=== PATIENT | female | born 1950 | race Caucasian/White ===

== ENCOUNTER 2020-08-09 23:12 | Inpatient (IN) | payer MEDICARE, MEDICAID ==
[~2020-08-09] VITALS: Ht 157.5 cm; Wt 67.6 kg
[2020-08-09 23:25] VITALS: BP 101/50
[2020-08-10] VITALS (22 sets, daily range): BP systolic 70–142; BP diastolic 43–76
[2020-08-10 00:20] LABS: HEMATOCRIT 43.9 % (37.0-47.0); HEMOGLOBIN 14.3 gm/dL (12.0-15.0); MCH 29.2 pg (26.0-34.0); MCHC 32.5 g/dL (28.0-37.0); MCV 89.9 fL (80.0-100.0); MPV 7.2 fl. (7.2-11.1); NUCLEATED RBCS 0 /100WBC; PLATELET COUNT* 646 thou/uL (150-400); RBC 4.89 mil/uL (4.20-5.00); RDW-CV 15.5 % (10.5-14.5); WBC 16.5 thou/uL (4.0-11.0)
[2020-08-10 00:27] LABS: INR 1.2
[2020-08-10 01:37] LABS: CALCIUM 7.8 mg/dL (8.5-10.1); POTASSIUM 4.3 mmol/L (3.5-5.1)
[2020-08-10 01:47] LABS: MAGNESIUM 1.8 mg/dL (1.8-2.4); TOTAL BILIRUBIN 0.5 mg/dL (<0.1-1.0); TOTAL PROTEIN 5.8 g/dL (6.4-8.2)
[2020-08-10 01:52] LABS: TROPONIN-I LEVEL 1.01 ng/mL (<0.06)
[2020-08-10 03:08] LABS: ABSOLUTE EOSINOPHILS 0.2 thou/uL (0.0-0.7); ABSOLUTE LYMPHOCYTES 1.7 thou/uL (0.8-5.3); ABSOLUTE MONOCYTES 0.3 thou/uL (0.0-1.2); ABSOLUTE NEUTROPHILS 14.4 thou/uL (1.6-8.1); CLUMPED PLTS FEW; PLATELET ESTIMATE INCREASED
[2020-08-10 03:09] LABS: TOXIC GRANULATION 1+
[2020-08-10 09:01] LABS: CHOLESTEROL 161 mg/dL (<200); HDL CHOLESTEROL 48 mg/dL (>40); LDL CHOLESTEROL 96 mg/dL (<100); TC:HDL 3.4 Ratio (Not establshd); TRIGLYCERIDE 85 mg/dL (<150); VLDL 17 mg/dL (<40)
[2020-08-10 09:05] LABS: SERUM ASSESSMENT Clear
--- NOTE | 2020-08-10 13:15 | H ---
[address] [address] HISTORY AND PHYSICAL Name: QUINN BLACKWELL Room: [address] IN M.R.#: [id number] Admission: 08/10/20 Attend Phys: Chau Mullins MD, Discharge: Date of : 52 Report #: [id number] THIS REPORT FOR: //name// cc: Royce Daniel MD, Michael S. MD ~ CC: Chau Daniel DATE OF SERVICE: 08/10/2020 The patient got into the ICU on 08/10/2020. HISTORY OF PRESENT ILLNESS: The patient is a pleasant 70-year-old female, who developed chest pain this evening. It did not remit. She denies episodes of this kind in the past. She has had somewhat different chest pain previous to this and underwent a cardiac catheterization at [facility] and was told she had a moderate lesion that did not require intervention. The pain this evening was severe with associated shortness of breath, but no nausea. There was mild diaphoresis. She presented to the ER with a field EKG suggesting acute inferior injury. This was corroborated by the EKG in the ER. The patient received aspirin and heparin, and we were called for emergent evaluation of this patient. She gives no history of prior myocardial infarction. Risk factors include tobacco habituation. She denies diabetes, hypertension, hypercholesterolemia or known peripheral vascular disease. She takes no cardiac medicines at present. PAST MEDICAL HISTORY: Remarkable for depression, mild obesity and chronic anxiety. SOCIAL HISTORY: There is a history of tobacco habituation, currently reduced to 4 cigarettes per day. REVIEW OF SYSTEMS: Remarkable for the following: PULMONARY: She notes a cough, which is somewhat productive in the a.m. PHYSICAL EXAMINATION: GENERAL: Demonstrates a mildly distressed, modestly overweight middle-aged female. VITAL SIGNS: Blood pressure is 110/70, pulse rate is 74, respirations are 18 per minute. NECK: Jugular venous pressure is normal. CHEST: Clear. CARDIAC: Reveals normal first and second heart [place] [address] HISTORY AND PHYSICAL Name: QUINN BLACKWELL Room: [address] IN [facility].#: [id number] Admission: 08/10/20 Attend Phys: Chau Mullins MD, Discharge: Date of : 52 Report #: [id number] gallops. ABDOMEN: Mildly obese. EXTREMITIES: Without edema with intact femoral, pedal and radial pulses. EKG reveals acute inferior wall ST segment elevation myocardial infarction. IMPRESSION: 1. Acute inferior ST elevation myocardial infarction. 2. Tobacco habituation. 3. Modest obesity. RECOMMENDATIONS: We planned emergent catheterization. That was undertaken, and the study revealed subtotal occlusion of the right coronary artery just distal to the acute margin with prominent intraluminal thrombus with BIANCA 2-3 flow of the distal vessel. Ultimately, we placed one 3.0 x 22 mm Jude drug-eluting stent in the right coronary artery with 0% residual narrowing, BIANCA 3 flow of the distal vessel and no residual thrombus. The patient did well postprocedurally. She was transferred to the ICU in satisfactory condition with the continuing infusion of Angiomax for 4 hours post procedure. Critical care time is 36 minutes from 12:20 to 12:56 on 08/10/2020. <ELECTRONICALLY SIGNED> By: Chau Mullins MD, [facility] 08/10/20 1315 0056 0255Chau Mullins MD, FAC /nt
--- NOTE | 2020-08-10 13:41 | 2DMMODE ---
[place] [address] 2 D/M-MODE ECHOCARDIOGRAM Name: QUINN BLACKWELL Room: [address] IN M.R.#: [id number] Admission: 08/10/20 Attend Phys: Kaia Armstrong Discharge: Date of : 52 Date of Service: 08/10/20 1340 Report #: [id number] THIS REPORT FOR: cc: Royce Daniel MD, Michael S. MD Holkins, John M. MD [facility] ~ APPROVED REPORT Study performed: 08/10/2020 09:56:12 EXAM: Comprehensive 2D, Doppler, and color-flow Echocardiogram Patient Location: Bedside BSA: 1.69 HR: 62 bpm BP: 142/73 mmHg Other Information Study Quality: Good Indications Chest Pain ND 2D Dimensions IVSd: 11.39 (7-11mm) LVOT Diam: 18.03 (18-24mm) LVDd: 46.90 mm PWd: 11.02 (7-11mm) Ascending Ao: 28.39 (22-36mm) LVDs: 28.99 (25-40mm) Aortic Root: 30.26 mm Volumes Left Atrial Volume (Systole) LA ESV Index: 26.20 mL/m2 Aortic Valve AoV Peak Tom.: 2.11 m/s AO Peak Gr.: 17.88 mmHg LVOT Max P.68 mmHg AO Mean Gr.: 9.50 mmHg LVOT Mean P.11 mmHg LVOT Max V: 1.47 m/s AO V2 VTI: 46.85 cm LVOT Mean V: 0.93 m/s RUBA (VTI): 1.82 cm2 LVOT V1 VTI: 33.32 [place] [address] 2 D/M-MODE ECHOCARDIOGRAM [facility] Room: [address] IN M.R.#: [id number] Admission: 08/10/20 Attend Phys: Kaia Armstrong Discharge: Date of : 52 Date of Service: 08/10/20 1340 Report #: [id number] E/A Ratio: 1.15 MV Decel. Time: 211.34 ms MV E Max Tom.: 0.84 m/s MV PHT: 61.29 ms MVA (PHT): 3.59 cm2 TDI E/Lateral E': 7.00 E/Medial E': 6.46 Medial E' Tom.: 0.13 m/s Lateral E' Tom.: 0.12 m/s Pulmonary Valve PV Peak Tom.: 1.23 m/s PV Peak Gr.: 6.07 mmHg Tricuspid Valve RAP Estimate: 5.00 mmHg TR Peak Gr.: 25.85 mmHg RVSP: 30.85 mmHg PA Pressure: 30.85 mmHg Left Ventricle The left ventricle is normal size. There is normal LV segmental wall motion. There is normal left ventricular wall thickness. Left ventricular systolic function is normal. The left ventricular ejection fraction is within the normal range. LVEF is 60%. The left ventricular diastolic function is normal. Right Ventricle The right ventricle is normal size. The right ventricular systolic function is normal. Atria The left atrium size is normal. The right atrium size is normal. Aortic Valve The Aortic valve is sclerotic. No aortic regurgitation is present. Mild aortic stenosis. Mitral Valve Mild mitral annular calcification. There is no mitral valve regurgitation noted. No evidence of mitral valve stenosis. Tricuspid Valve The tricuspid valve is normal in structure. Trace [place] [address] 2 D/M-MODE ECHOCARDIOGRAM Name: QUINN BLACKWELL Room: [address] [facility]#: [id number] Admission: 08/10/20 Attend Phys: Kaia Armstrong Discharge: Date of : 52 Date of Service: 08/10/20 1340 Report #: [id number] Pulmonic Valve The pulmonary valve is normal in structure. There is no pulmonic valvular regurgitation. Great Vessels The aortic root is normal in size. IVC is normal in size and collapses >50% with inspiration. Pericardium There is no pericardial effusion. <Conclusion> The left ventricle is normal size. There is normal left ventricular wall thickness. Left ventricular systolic function is normal. The left ventricular ejection fraction is within the normal range. LVEF is 60%. The left ventricular diastolic function is normal. The right ventricle is normal size. The left atrium size is normal. The Aortic valve is sclerotic. No aortic regurgitation is present. Mild aortic stenosis. Mild mitral annular calcification. There is no mitral valve regurgitation noted. The tricuspid valve is normal in structure. IVC is normal in size and collapses >50% with inspiration. There is no pericardial effusion. There is normal LV segmental wall motion. <ELECTRONICALLY SIGNED> By: Chau Mullins MD, FACC 08/10/20 1340 1340 1340 Chau Mullins MD, FACC /INF
--- NOTE | 2020-08-10 13:54 | EKG ---
[place] [address] ELECTROCARDIOGRAM REPORT Name: QUINN BLACKWELL Room: [address] ADM IN M.R.#: [id number] Admission: 08/10/20 Attend Phys: Kaia Armstrong Discharge: Date of : 52 Date of Service: 08/09/20 2331 Report #: [id number] THIS REPORT FOR: //name// [facility] ED Test Date: 2020-08-09 Test Time: 23:31:58 Pat Name: QUINN BLACKWELL Department: Room: [facility] Gender: F Hotel Housekeeper: ZAIDA : 1950 Requested By: Rosa Lopez Order Number: [id number] MD: Chau Mullins Measurements Intervals [place] Rate: 52 P: 71 [place]: 146 QRS: 68 QRSD: 80 T: 88 QT: 466 QTc: 434 Interpretive Statements Sinus rhythm Inferior infarct, acute (RCA) Probable RV involvement, suggest recording right precordial leads Baseline wander in lead(s) V1 No previous ECG available for comparison Electronically Signed On 08-10-2020 13:54:38 CDT by Chau Mullins [email or web address] <ELECTRONICALLY SIGNED> By: Chau Mullins MD, FACC 08/10/20 1354 2331 2331 Chau Mullins MD, FAC /EPI
--- NOTE | 2020-08-10 13:56 | EKG ---
[place] [address] ELECTROCARDIOGRAM REPORT Name: QUINN BLACKWELL Room: [address] ADM IN M.R.#: [id number] Admission: 08/10/20 Attend Phys: Kaia Armstrong Discharge: Date of : 52 Date of Service: 08/10/20 0136 Report #: [id number] THIS REPORT FOR: //name// [facility] Test Date: 2020-08-10 Test Time: 01:36:58 Pat Name: QUINN BLACKWELL Department: Room: [address] Gender: F Homeopathic Doctor: DANIEL : 1950 Requested By: Chau Mullins Order Number: [id number] MD: Chau Mullins Measurements Intervals [place] Rate: 60 P: 79 MD: 154 QRS: 48 QRSD: 86 T: 72 QT: 455 QTc: 455 Interpretive Statements Sinus rhythm Minimal ST elevation, inferior leads Compared to ECG 08/09/2020 23:31:58 ST (T wave) deviation now present Inferior ST segment elevation has diminished markedly Electronically Signed On 08-10-2020 13:55:53 CDT by Chau Mullins [email or web address] <ELECTRONICALLY SIGNED> By: Chau Mullins MD, FAC 08/10/20 1355 5 5 Chau Mullins MD, FAC /EPI
--- NOTE | 2020-08-10 13:58 | EKG ---
[place] [address] ELECTROCARDIOGRAM REPORT Name: QUINN BLACKWELL Room: [address] ADM IN M.R.#: [id number] Admission: 08/10/20 Attend Phys: Kaia Armstrong Discharge: Date of : 52 Date of Service: 08/10/20 0953 Report #: [id number] THIS REPORT FOR: //name// [facility] Test Date: 2020-08-10 Test Time: 09:53:10 Pat Name: QUINN BLACKWELL Department: Room: [address] Gender: F Core Analysis Operator: TONY : 1950 Requested By: Chau Mullins Order Number: [id number] Reading MD: Chau Mullins Measurements Intervals [place] Rate: 60 P: 71 [place]: 148 QRS: 20 QRSD: 86 T: -29 QT: 451 QTc: 451 Interpretive Statements Sinus rhythm Nonspecific T abnormalities, inferior leads Compared to ECG 08/10/2020 01:36:58 There has been evolution of inferior ST-T abnormalities compatible with evolving injury Electronically Signed On 08-10-2020 13:58:06 CDT by Chau Mullins [email or web address] <ELECTRONICALLY SIGNED> By: Chau Mullins MD, FAC 08/10/20 1358 0953 0953 Chau Mullins MD, [facility] /EPI
[2020-08-10 18:12] LABS: URINE BILIRUBIN NEGATIVE (Negative); URINE BLOOD NEGATIVE (Negative); URINE CLARITY CLEAR; URINE COLOR YELLOW; URINE GLUCOSE-RANDOM NEGATIVE (Negative); URINE KETONES NEGATIVE (Negative); URINE LEUKOCYTES-REFLEX NEGATIVE (Negative); URINE NITRITE-REFLEX NEGATIVE (Negative); URINE PROTEIN NEGATIVE (Negative); URINE UROBILINOGEN 0.2 E.U./dl (0.2-1.0)
[2020-08-11] VITALS (7 sets, daily range): BP systolic 110–126; BP diastolic 58–61
[2020-08-11 02:37] LABS: HEMATOCRIT 40.4 % (37.0-47.0); HEMOGLOBIN 13.6 gm/dL (12.0-15.0); MCH 29.9 pg (26.0-34.0); MCHC 33.8 g/dL (28.0-37.0); MCV 88.5 fL (80.0-100.0); MPV 7.2 fl. (7.2-11.1); RBC 4.56 mil/uL (4.20-5.00); RDW-CV 15.1 % (10.5-14.5); WBC 10.6 thou/uL (4.0-11.0)
[2020-08-11 02:52] LABS: ALBUMIN 2.7 g/dL (3.4-5.0); CALCIUM 7.8 mg/dL (8.5-10.1); CREATININE 0.8 mg/dL (0.6-1.3); POTASSIUM 4.2 mmol/L (3.5-5.1); TOTAL PROTEIN 5.4 g/dL (6.4-8.2)
[2020-08-11 02:56] LABS: TROPONIN-I LEVEL 2.29 ng/mL (<0.06)
[2020-08-11] MEDS ORDERED: LIPITOR 40 MG T40 M1 PO (08:33)
[2020-08-11] MEDS ORDERED: ASPIR 8181 MG PO (08:33)
[2020-08-11] MEDS ORDERED: CARVEDILOL3.125 MG PO (08:33)
[2020-08-11] MEDS ORDERED: LISINOPRIL5 MG PO (08:33)
[2020-08-11] MEDS ORDERED: EFFIENT10 MG PO (08:33)
--- NOTE | 2020-08-11 10:23 | CARD ---
[address] [address] CARDIAC CATH REPORT Name: QUINN BLACKWELL Room: [address] IN ..#: [id number] Admission: 08/10/20 Attend Phys: Chau Mullins MD, Discharge: Date of : 52 Report #: [id number] THIS REPORT FOR: //name// cc: Royce Daniel MD, Michael S. MD ~ ADDENDUM APPROVED REPORT Study performed: 08/09/2020 23:19:36 Patient Details Patient Status: ED Room #: ICU-5 The patient is a 70 year-old female Event Personnel Chau Mullins Humane Agent, Chelsey Sánchez RN Enrichment Teacher, Apple Gomez RTR Monitor, Gomez Florence RTR Scrub Procedures Performed Art Access - R femoral artery, Left Heart Cath w/or w/o Coronaries LHC, ARLETH Place w/wo Plasty Single RCA , Hemostasis w/ Angioseal Indication STEMI Risk Factors Tobacco History () Admission/Lab Medications/Medications given during procedure Angiomax IV 10 ml, Angiomax Drip IV 23.1 ml per hr, Nitroglycerin IC 150 mcg, Nitroglycerin IC 150 mcg, Effient PO 60 mg, Aspirin PO 162 mg Procedure Narrative The patient was brought emergently to the Cardiac Catheterization Laboratory and was prepped and draped in a sterile manner. The right femoral was infiltrated with 2% Lidocaine subcutaneous anesthesia. A Ramah 6 FR sheath was inserted into the right femoral artery. Coronary angiography was performed using coronary diagnostic catheters. The right coronary system was accessed and visualized with a 6F JR4 catheter. The left coronary system was accessed and visualized with a 6F JL4 catheter. The left ventricle was accessed and visualized with a 5F Straight Pigtail catheter. Left ventricular/Aortic Valve gradient assessed [place] [address] CARDIAC CATH REPORT Name: QUINN BLACKWELL Room: [address] IN M.R.#: [id number] Admission: 08/10/20 Attend Phys: Chau Mullins MD, Discharge: Date of : 52 Report #: [id number] Left ventriculogram was performed in PASTRANA projection. Pre-demployment femoral angiogram was performed . Closure device was deployed with a 6 Fr Angioseal STS. The patient tolerated the procedure well and there were no complications associated with the procedure. There was no hematoma. Intraoperative Conscious Sedation Sedation start time: 12:19 Case end Time: 12:42 Fentanyl 25 mcg Versed 1 mg Fluoro Time: 10.3 minutes Dose: DAP 15281 cGycm2 907 mGy Contrast Type and Amount: Visipaque 190 ml Coronary Angiography The patient's coronary anatomy is right dominant. Diagnostic Cath Left Main 0% narrowing LAD 30% mid LAD narrowing Circumflex 20% mid circumflex narrowing Right Coronary Large dominant vessel with 30% mid vessel narrowing and 90% stenosis just beyond the acute margin with prominent intraluminal thrombus at the site. There was BIANCA II-III flow to the distal right coronary artery Left Ventriculography The left ventricle is normal in size with normal contractility. The left ventricular ejection fraction is estimated to be 65%. Left ventricular wall motion abnormalities are not present. There is no mitral insufficiency. Hemodynamics The aortic pressure is 97/54 mmHg with a mean of 73 mmHg. The left ventricular pressure is 101/8 mmHg with a mean of mmHg. The left ventricular end diastolic pressure is 22 mmHg. PCI Technique Lesion Anticoagulation was achieved with Angiomax. Patient was preloaded with Angiomax IV 10 ml. Percutaneous coronary intervention was performed on the Distal right coronary artery. The lesion stenosis prior to intervention was 90% with BIANCA 2-3 flow. A 6F JR 4.0 Guide Catheter was used to engage the right ostium. A BMW 190cm Interventional Guidewire was [place] [address] CARDIAC CATH REPORT Name: QUINN BLACKWELL Room: [address] IN ..#: [id number] Admission: 08/10/20 Attend Phys: Chau Mullins MD, Discharge: Date of : 52 Report #: [id number] BALLOON DILATION A Balloon catheter Mini Trek RX 2.0 X 15 was inserted and inflated up to 10.00atm for 11seconds. STENT DEPLOYMENT A drug-eluting stent Jude RX Stent 3.0X22mm was inserted and inflated up to 12.00atm for 18seconds. Additional Inflation: 14.00atm for 12seconds. Final angiography reveals 0 % stenosis with BIANCA 3 flow. Conclusion 1. Acute inferior wall ST segment elevation myocardial infarction 2. Significant coronary artery disease characterized by the following: A 30% mid RCA narrowing with 90% stenosis just beyond the acute margin with prominent intraluminal thrombus and BIANCA II-III flow to the distal right coronary artery B 30% mid LAD narrowing C 20% mid circumflex narrowing 3. Successful PCI with deployment of a drug-eluting stent at site of 90% distal right coronary stenosis just beyond the acute margin with 0% residual narrowing BIANCA-3 flow to the distal vessel and no residual thrombus 4. Normal left ventricular systolic function, estimated ejection fraction 65% 5. Modest elevation of left ventricular end diastolic pressure at rest Recommendations Cardiac Risk Reduction Program Aggressive Medical Therapy Medications Administered Aspirin (any) [place] [address] CARDIAC CATH REPORT Name: QUINN BLACKWELL Room: [address] IN ..#: [id number] Admission: 08/10/20 Attend Phys: Chau Mullins MD, Discharge: Date of : 52 Report #: [id number] Diagnostic Cath Approved by: Chau Mullins MD Date/Time: 08/10/2020 14:06:59 <ELECTRONICALLY SIGNED> By: Chau Mullins MD, FACC 08/11/20 1023 1023 1023Chau Mullins MD, [facility] /INF
--- NOTE | 2020-08-13 15:25 | EKG ---
[place] [address] ELECTROCARDIOGRAM REPORT Name: QUINN BLACKWELL Room: [address] DIS IN M.R.#: [id number] Admission: 08/10/20 Attend Phys: Kaia Armstrong Discharge: 08/11/20 Date of : 52 Date of Service: 08/11/20 0713 Report #: [id number] THIS REPORT FOR: //name// [facility] Test Date: 2020-08-11 Test Time: 07:13:21 Pat Name: QUINN BLACKWELL Department: Room: [address] Gender: F Vice President Research: [email or web address] : 1950 Requested By: Chau Mullins Order Number: [id number] Reading MD: Santos Gutiérrez Measurements Intervals [place] Rate: 61 P: 70 [place]: 144 QRS: 11 QRSD: 88 T: -21 QT: 444 QTc: 448 Interpretive Statements Sinus rhythm Nonspecific T abnormalities, inferior leads Minimal ST elevation, anterior leads early repolarization Baseline wander in lead(s) V3 Compared to ECG 08/10/2020 09:53:10 ST (T wave) deviation now present T-wave abnormality still present Electronically Signed On 08-13-2020 15:25:30 CDT by Santos Gutiérrez [email or web address] <ELECTRONICALLY SIGNED> By: Santos Gutiérrez MD, [facility] 08/13/20 1525 2 2 Santos Gutiérrez MD, [facility] /EPI
--- NOTE | 2020-08-18 13:02 | D ---
[address] [address] DISCHARGE SUMMARY Name: QUINN BLACKWELL Room: [address] IN M.R.#: [id number] Admission: 08/10/20 Attend Phys: Chau Mullins MD, Discharge: 08/11/20 Date of : 52 Report #: [id number] THIS REPORT FOR: //name// cc: Royce Daniel MD, Michael S. MD ~ THIS REPORT FOR: //name// CC: Chau Daniel DATE OF SERVICE: 08/11/2020 The patient discharged from ICU 5 on 08/11/2020. FINAL DISCHARGE DIAGNOSES: 1. Acute inferior wall ST segment elevation myocardial infarction. 2. Coronary artery disease. 3. Status post percutaneous coronary intervention of the right coronary artery. 4. Tobacco abuse. 5. Hyperlipidemia. PROCEDURES: 08/10/2020 - left heart catheterization, left ventriculography, selective coronary arteriography, percutaneous coronary intervention with deployment of drug-eluting stent in the mid to distal right coronary artery. HISTORY: The patient is a very pleasant 70-year-old female who presented with chest pain late evening to the [facility] Emergency Room. She has underlying tobacco abuse and mild hyperlipidemia. She was found to have inferior wall ST segment elevation compatible with inferior wall ST segment elevation myocardial infarction. In that context, she was taken emergently to the catheterization laboratory where cardiac catheterization was performed. That study demonstrated subtotal occlusion of the right coronary artery, acute margin with prominent intraluminal thrombus. There were no significant stenosis of the left main, LAD or circumflex. I performed acute PCI, deploying 1 drug-eluting stent at the acute margin, 3.0 x 22 mmHg [place] deployed to 14 atmospheres with 0% residual narrowing, BIANCA 3 flow of the distal vessel and no residual thrombus. Troponin rebecca modestly to a peak value of 2.29 post-procedurally. She had no recurrent chest discomfort. She ambulated without difficulty and there was good hemostasis at the right femoral site of catheterization. Laboratory pre-discharge revealed a sodium of 140, potassium 4.2, BUN 12, creatinine 0.8. Peak troponin of 2.29. Hemoglobin 13.6, white blood cell count 10,600 with 552,000 platelets. Lipids revealed a cholesterol of 161, triglycerides 85, [place] [address] DISCHARGE SUMMARY Name: QUINN BLACKWELL Room: [address]#: [id number] Admission: 08/10/20 Attend Phys: Chau Mullins MD, Discharge: 08/11/20 Date of : 52 Report #: [id number], and LDL 96 mg percent. DISCHARGE MEDICATIONS: The patient was discharged to home on the following medications; prasugrel or Effient 10 mg daily, aspirin 81 mg daily, Lipitor 40 mg daily, lisinopril 2.5 mg daily and carvedilol 3.125 mg b.i.d. The patient is scheduled to see my nurse practitioner on 08/21/2020 at 1100 at the [place] office and myself on 10/02/2020 at the [place] office at 1430. Therefore, the patient is discharged to home in stable condition on the aforementioned medications with followup as described above. <ELECTRONICALLY SIGNED> By: Chau Mullins MD, FACC 08/18/20 1302 1031 1052Jocalvin Mullins MD, FACC /nt
== END 2020-08-11 12:08 | disposition home or self-care (01) | DRG 246 ==
LOC: M.CL 23:12 → M.ERS 23:12 → M.ICU 23:57 → M.TBA-ER 08-10 00:23 → M.ICU 08-10 00:50
PROVIDERS: Emergency Medicine; ADMIT Internal Medicine; ATTEND Internal Medicine
PROC: B211YZZ Fluoroscopy of Multiple Coronary Arteries using Other Contrast (ICD-10-PCS; principal; 2020-08-10)
PROC: 4A023N7 Measurement of Cardiac Sampling and Pressure, Left Heart, Percutaneous Approach (ICD-10-PCS; principal; 2020-08-10)
PROC: 027034Z Dilation of Coronary Artery, One Artery with Drug-eluting Intraluminal Device, Percutaneous Approach (ICD-10-PCS; principal; 2020-08-10)
PROC: B215YZZ Fluoroscopy of Left Heart using Other Contrast (ICD-10-PCS; principal; 2020-08-10)
PROC: 3E033PZ Introduction of Platelet Inhibitor into Peripheral Vein, Percutaneous Approach (ICD-10-PCS; principal; 2020-08-10)
DX: I21.19 ST elevation (STEMI) myocardial infarction involving other coronary artery of inferior wall (principal); I50.33 Acute on chronic diastolic (congestive) heart failure; I25.10 Atherosclerotic heart disease of native coronary artery without angina pectoris; E78.5 Hyperlipidemia, unspecified; F41.9 Anxiety disorder, unspecified; F32.9 Major depressive disorder, single episode, unspecified; F17.210 Nicotine dependence, cigarettes, uncomplicated; E66.9 Obesity, unspecified; Z20.828 Contact with and (suspected) exposure to other viral communicable diseases; Z68.27 Body mass index [BMI] 27.0-27.9, adult; Z23 Encounter for immunization; Z88.5 Allergy status to narcotic agent

== ENCOUNTER 2021-03-26 16:57 | Emergency (ER) | payer MEDICARE, MEDICAID ==
[~2021-03-26] VITALS: Ht 157.5 cm; Wt 62.6 kg
[~2021-03-26 16:57] MED LIST: ASPIR 8181 MG PO; CARVEDILOL3.125 MG PO; EFFIENT10 MG PO; LIPITOR 40 MG T40 M1 PO; LISINOPRIL5 MG PO
[2021-03-26] MEDS ORDERED: SPIRIVA18 MCG INH (17:21)
[2021-03-26] MEDS ORDERED: PREDNISONE 10 M10 MG PO (17:21)
[2021-03-26] MEDS ORDERED: VENTOLIN HFA 1818 GM INH (17:21)
[2021-03-26] MEDS ORDERED: ALBUTEROL2.5 MG/0.1 INH (17:21)
[2021-03-26] MEDS ORDERED: ADVAIR 100-501 EACH INH (17:21)
[2021-03-26] MEDS ORDERED: DRIZALMA SPRINK60 MG PO (17:22)
[2021-03-26] MEDS ORDERED: OMEPRAZOLE40 MG PO (17:22)
[2021-03-26] MEDS ORDERED: NITROSTAT0.4 M1 (17:22)
[2021-03-26] MEDS ORDERED: ABILIFY 5 MG TAB5 M1 PO (17:22)
[2021-03-26 17:50] VITALS: BP 153/90
== END 2021-03-26 17:50 | disposition home or self-care (01) ==
LOC: M.ERS 16:57
DX: S00.412A Abrasion of left ear, initial encounter (principal); J44.9 Chronic obstructive pulmonary disease, unspecified; Z90.89 Acquired absence of other organs; Z88.5 Allergy status to narcotic agent; X58.XXXA Exposure to other specified factors, initial encounter; Y93.89 Activity, other specified; Y92.89 Other specified places as the place of occurrence of the external cause; Y99.8 Other external cause status

== ENCOUNTER 2021-03-26 22:55 | Emergency (ER) | payer MEDICARE, MEDICAID ==
[~2021-03-26] VITALS: Ht 157.5 cm; Wt 61.9 kg
[~2021-03-26 22:55] MED LIST changes: +ABILIFY 5 MG TAB5 M1 PO; +ADVAIR 100-501 EACH INH; +ALBUTEROL2.5 MG/0.1 INH; +DRIZALMA SPRINK60 MG PO; +NITROSTAT0.4 M1; +OMEPRAZOLE40 MG PO; +PREDNISONE 10 M10 MG PO; +SPIRIVA18 MCG INH; +VENTOLIN HFA 1818 GM INH
[2021-03-27 00:27] VITALS: BP 154/81
== END 2021-03-27 00:28 | disposition home or self-care (01) ==
LOC: M.ERS 22:55
DX: S00.412A Abrasion of left ear, initial encounter (principal); J44.9 Chronic obstructive pulmonary disease, unspecified; Z88.5 Allergy status to narcotic agent; X58.XXXA Exposure to other specified factors, initial encounter; Y93.89 Activity, other specified; Y92.89 Other specified places as the place of occurrence of the external cause; Y99.8 Other external cause status

== ENCOUNTER 2021-07-09 22:21 | Emergency (ER) | payer MEDICARE, MEDICAID ==
[~2021-07-09] VITALS: Ht 157.5 cm; Wt 63.3 kg
[2021-07-09 23:00] LABS: ABSOLUTE BASOPHILS 0.1 thou/uL (0.0-0.2); ABSOLUTE EOSINOPHILS 0.3 thou/uL (0.0-0.7); ABSOLUTE LYMPHOCYTES 2.4 thou/uL (0.8-5.3); ABSOLUTE MONOCYTES 0.4 thou/uL (0.0-1.2); ABSOLUTE NEUTROPHILS 7.3 thou/uL (1.6-8.1); EOSINOPHILS 2.9 %; HEMATOCRIT 46.6 % (37.0-47.0); LYMPHOCYTES 23.1 %; MCH 28.6 pg (26.0-34.0); MCHC 32.3 g/dL (28.0-37.0); MCV 88.7 fL (80.0-100.0); MPV 7.1 fl. (7.2-11.1); NUCLEATED RBCS 0 /100WBC; PLATELET COUNT* 623 thou/uL (150-400); RBC 5.26 mil/uL (4.20-5.00); RDW-CV 15.1 % (10.5-14.5); WBC 10.6 thou/uL (4.0-11.0)
[2021-07-09 23:10] LABS: CREATININE 0.8 mg/dL (0.6-1.3); POTASSIUM 4.1 mmol/L (3.5-5.1)
[2021-07-09 23:11] LABS: INR 1.1; PROTIME 11.6 Seconds (9.20-11.50)
[2021-07-09 23:20] LABS: ALBUMIN 3.3 g/dL (3.4-5.0); MAGNESIUM 1.5 mg/dL (1.8-2.4); TOTAL BILIRUBIN 0.8 mg/dL (<0.1-1.0); TOTAL PROTEIN 6.1 g/dL (6.4-8.2)
[2021-07-10 05:51] LABS: BE 2.9 mmol/L (-2 to +3); PO2 88.3 mmHg (75.0-100.0); pH 7.308 (7.340-7.450)
[2021-07-10 05:53] LABS: PCO2 63.9 mmHg (35.0-45.0)
[2021-07-10 08:48] VITALS: BP 127/67
--- NOTE | 2021-07-10 13:15 | EKG ---
[place] [address] ELECTROCARDIOGRAM REPORT Name: QUINN BLACKWELL Room: [facility]#: [id number] Admission: 07/09/21 Attend Phys: Discharge: 07/10/21 Date of : 52 Date of Service: 07/09/212227 Report #: [id number] THIS REPORT FOR: //name// [facility] ED Test Date: 2021-07-09 Test Time: 22:28:08 Pat Name: QUINN BLACKWELL Department: Room: Gender: Associate Web Developer: PETER : 1950 Requested By: Rosa Lopez Order Number: [id number] MD: Santos Gutiérrez Measurements Intervals [place] Rate: 69 P: 63 [place]: 150 QRS: 36 QRSD: 84 T: 61 QT: 437 QTc: 469 Interpretive Statements Sinus rhythm Compared to ECG 08/11/2020 07:13:21 T-wave abnormality no longer present ST (T wave) deviation no longer present Early repolarization no longer present Electronically Signed On 07-10-2021 13:14:58 CDT by Santos Gutiérrez [email or web address] <ELECTRONICALLY SIGNED> By: Santos Gutiérrez MD, [facility] 07/10/21 1314 27 27 Santos Gutiérrez MD, [facility] /EPI
== END 2021-07-10 08:48 | disposition home or self-care (01) ==
LOC: M.ERS 22:21
PROVIDERS: Emergency Medicine
DX: R40.0 Somnolence (principal); T50.905A Adverse effect of unspecified drugs, medicaments and biological substances, initial encounter; J44.9 Chronic obstructive pulmonary disease, unspecified; Z90.89 Acquired absence of other organs; Z79.899 Other long term (current) drug therapy; Z88.5 Allergy status to narcotic agent; Y92.89 Other specified places as the place of occurrence of the external cause

== ENCOUNTER 2021-10-31 19:38 | Observation (INO) | payer OTHER, MEDICAID ==
[~2021-10-31] VITALS: Ht 154.9 cm; Wt 59.0 kg
[2021-10-31 19:44] VITALS: BP 120/71
[2021-10-31] MEDS ORDERED: HYDREA 500 MG500 M1 PO (19:47)
[2021-10-31] MEDS ORDERED: SPIRIVA18 MCG INH (19:49)
[2021-10-31 20:19] LABS: ABSOLUTE BASOPHILS 0.1 thou/uL (0.0-0.2); ABSOLUTE EOSINOPHILS 0.1 thou/uL (0.0-0.7); ABSOLUTE LYMPHOCYTES 2.5 thou/uL (0.8-5.3); ABSOLUTE MONOCYTES 0.5 thou/uL (0.0-1.2); ABSOLUTE NEUTROPHILS 5.9 thou/uL (1.6-8.1); BASOPHILS 1.3 %; EOSINOPHILS 1.3 %; HEMATOCRIT 40.3 % (37.0-47.0); HEMOGLOBIN 13.8 gm/dL (12.0-15.0); LYMPHOCYTES 27.6 %; MCH 31.8 pg (26.0-34.0); MCHC 34.1 g/dL (28.0-37.0); MCV 93.2 fL (80.0-100.0); MONOCYTES 5.7 %; NUCLEATED RBCS 0 /100WBC; PLATELET COUNT* 440 thou/uL (150-400); POLYS 64.1 %; RBC 4.33 mil/uL (4.20-5.00); WBC 9.2 thou/uL (4.0-11.0)
[2021-10-31 20:28] LABS: CALCIUM 7.9 mg/dL (8.5-10.1); CREATININE 0.6 mg/dL (0.6-1.3)
[2021-10-31 20:31] LABS: APTT 24.7 Seconds (25.0-31.3); INR 1.2; PROTIME 12.1 Seconds (9.20-11.50)
[2021-10-31 20:39] LABS: ALBUMIN 3.2 g/dL (3.4-5.0); TOTAL PROTEIN 5.9 g/dL (6.4-8.2)
[2021-10-31 20:43] LABS: ANISOCYTOSIS 1+
[2021-10-31 20:44] LABS: PLATELET ESTIMATE INCREASED
[2021-11-01 01:00] VITALS: BP 121/50
[2021-11-01 05:00] VITALS: BP 128/74
[2021-11-01 09:15] VITALS: BP 158/80
--- NOTE | 2021-11-01 11:11 | EKG ---
[place] [address] ELECTROCARDIOGRAM REPORT Name: QUINN BLACKWELL Room: [address]R.#: [id number] Admission: 10/31/21 Attend Phys: Marva Gonzales Discharge: Date of : 52 Date of Service: 10/31/211945 Report #: [id number] THIS REPORT FOR: //name// [facility] ED Test Date: 2021-10-31 Test Time: 19:46:02 Pat Name: QUINN BLACKWELL Department: Room: [facility] Gender: F Backend Python Developer: : 1950 Requested By: Laya Xavier Order Number: [id number] MD: Santos Gutiérrez Measurements Intervals [place] Rate: 73 P: 77 [place]: 137 QRS: 53 QRSD: 81 T: 56 QT: 426 QTc: 470 Interpretive Statements Sinus rhythm Compared to ECG 07/09/2021 22:28:08 No significant changes Electronically Signed On 11-01-2021 11:10:41 SODA FOUNTAIN OPERATOR by Santos Gutiérrez [email or web address] <ELECTRONICALLY SIGNED> By: Santos Gutiérrez MD, FACC 11/01/21 1110 45 45 Santos Gutiérrez MD, [facility] /EPI
--- NOTE | 2021-11-01 11:13 | EKG ---
[place] [address] ELECTROCARDIOGRAM REPORT Name: QUINN BLACKWELL Room: [address]R.#: [id number] Admission: 10/31/21 Attend Phys: Marva Gonzales Discharge: Date of : 52 Date of Service: 10/31/21 2326 Report #: [id number] THIS REPORT FOR: //name// [facility] ED Test Date: 2021-10-31 Test Time: 23:26:59 Pat Name: QUINN BLACKWELL Department: Room: [facility] Gender: F Pharmacy Coordinator: : 1950 Requested By: Laya Xavier Order Number: [id number] MD: Santos Gutiérrez Measurements Intervals [place] Rate: 62 P: 76 [place]: 141 QRS: 55 QRSD: 93 T: 63 QT: 446 QTc: 453 Interpretive Statements Sinus rhythm Compared to ECG 10/31/2021 19:46:02 No significant changes Electronically Signed On 11-01-2021 11:13:27 MODELING INSTRUCTOR by Santos Gutiérrez [email or web address] <ELECTRONICALLY SIGNED> By: Santos Gutiérrez MD, FACC 11/01/21 1113 2326 2326 Santos Gutiérrez MD, [facility] /EPI
[2021-11-01 11:29] VITALS: BP 158/80
[2021-11-01 11:45] VITALS: BP 158/80
--- NOTE | 2021-11-02 14:10 | CON ---
[address] [address] CONSULTATION Name: QUINN BLACKWELL Room: [address] Ghada [place]#: [id number] Admission: 10/31/21 Attend Phys: Dianna Meneses Discharge: 11/01/21 Date of : 52 Report #: [id number] THIS REPORT FOR: cc: Royce Daniel MD, Michael S. MD Blick, David R. MD [facility] ~ cc: Royce Daniel MD DATE OF CONSULTATION: 11/01/2021 CARDIOLOGY CONSULTATION HISTORY OF PRESENT ILLNESS: The patient is a 71-year-old single white female who came to the hospital complaining of chest pain. The patient initially presented in 08/2020 with an acute inferior STEMI. She was seen urgently by my partner, Dr. Chau Mullins. She had a stent placed in her right coronary artery. There is no significant disease in the LAD or circumflex artery. Her LDL was 96 at that time. She was started on Effient, lisinopril and carvedilol. She has done well since that time. Her echocardiogram at that time showed an ejection fraction of 60%. There was evidence of mild aortic stenosis with a peak gradient across the aortic valve of 8 mmHg. She stays fairly active, going for walks. She was doing well until yesterday, she was lying in bed, she felt a pain in her left armpit. It tends to come and go. It is not related to food coughing or taking deep breath. She denied any trauma to her chest. There was no rash. She denied any shortness of breath. She does have occasional episodes when her heart will flutter. She has had no syncope. Because of the discomfort she finally called the ambulance and was brought here to [place] for further evaluation and treatment. PAST MEDICAL HISTORY: She has had previous cholecystectomy, knee surgery, tonsillectomy, hypertension, hyperlipidemia. CURRENT MEDICATIONS: Include Prilosec, Cymbalta, Lipitor, prednisone, lisinopril. She uses inhaler, Effient, carvedilol, aspirin a day. ALLERGIES: SHE HAS A PREVIOUS INTOLERANCE TO CODEINE. FAMILY HISTORY: Negative for heart disease. SOCIAL HISTORY: She is , lives with friends in [place]. Used to smoke a pack of cigarettes a day, now down to 1 cigarette a day. Rarely drinks alcohol. REVIEW OF SYSTEMS: No history of stroke, asthma, liver disease, kidney disease. 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 [address] CONSULTATION Name: QUINN BLACKWELL Room: [address] Ghada [place]#: [id number] Admission: 10/31/21 Attend Phys: Dianna Meneses Discharge: 11/01/21 Date of : 52 Report #: [id number] hydroxyurea and prednisone. No history of psychiatric illness. No chronic skin condition. PHYSICAL EXAMINATION: GENERAL: Revealed an elderly female who appeared in no acute distress. VITAL SIGNS: She had a blood pressure of 140/90, pulse 70. She is afebrile. HEENT: She was anicteric. Conjunctivae pink. Mucous membranes moist. NECK: Neck veins nondistended. No carotid bruits. Neck is supple. CHEST: Clear to auscultation. HEART: Regular rate and rhythm without rub or murmur. ABDOMEN: Soft. EXTREMITIES: Had no edema. Posterior tibial pulse 2+ bilaterally. SKIN: Cool and dry. NEUROLOGIC: Nonfocal. MUSCULOSKELETAL: She has some tenderness in the right axilla to palpation. There was no swelling. ECG showed a sinus rhythm, nonspecific ST segment changes. She had a portable chest x-ray in the Emergency Room last night which showed normal heart size, clear lung shin. LABORATORY WORK: Potassium is 3.0. Her high sensitivity troponin was 8. BNP 746. Hemoglobin 13.8. Her COVID antigen stat test was negative. IMPRESSION AND RECOMMENDATIONS: 1. Pain under her left armpit. Atypical for angina. No evidence of acute myocardial infarction. I think it is reasonable to discharge the patient from the Emergency Room at this time and have her follow up with my partner, Dr. Mullnis. 2. Coronary artery disease. Previous stent. The patient is on aspirin and Effient. 3. Hypertension. The patient is on a beta masha and M[place] inhibitor. 4. Hyperlipidemia. The patient is on a statin drug. 5. Preleukemia. The patient followed by Hematology. 6. Previous tobacco abuse. <ELECTRONICALLY SIGNED> By: Santos Gutiérrez MD, FACC 11/02/21 1410 [id number] Gutiérrez MD, FACC /nt
== END 2021-11-01 11:45 | disposition home or self-care (01) ==
LOC: M.ERS 19:38 → M.TBA-ER 21:10
PROVIDERS: Personal Emergency Response Attendant; ADMIT Internal Medicine; ATTEND Internal Medicine
DX: R07.89 Other chest pain (principal); Z20.822 Contact with and (suspected) exposure to COVID-19; J44.9 Chronic obstructive pulmonary disease, unspecified; I25.10 Atherosclerotic heart disease of native coronary artery without angina pectoris; E87.6 Hypokalemia; I25.2 Old myocardial infarction; I10 Essential (primary) hypertension; E78.5 Hyperlipidemia, unspecified; D46.9 Myelodysplastic syndrome, unspecified; F17.210 Nicotine dependence, cigarettes, uncomplicated; Z79.82 Long term (current) use of aspirin; Z79.899 Other long term (current) drug therapy